=== PATIENT | male | born 1960 | race Caucasian/White ===

== ENCOUNTER → 2017-11-01 08:21 | Outpatient (CLI) | payer OTHER, SELFPAY ==
--- NOTE | 2017-11-01 08:21 | DT_ITS ---
This patient was seen during an EMR downtime October 27, 2017 - November 03, 2017. This patient may have a combination of paper and electronic documentation or all paper documentation. All documentation is viewable within the e-chart portion of [employer] for each patient visit.
--- NOTE | 2017-11-01 09:12 | MRI_ITS ---
STUDY: MRI RIGHT ELBOW REASON FOR EXAM: Male, 56 years old. Fall 2 weeks ago. Pain. TECHNIQUE: Standardized fat and water weighted pulse sequences were obtained in all 3 orthogonal planes. COMPARISON: None. FINDINGS: Normal radio-capitellum articulation. Normal radial collateral ligamentous complex. There is tendinosis with tendon thickening of the common extensor tendon. There are adjacent ossifications in the soft tissues. Normal ulnotrochlear articulation. Normal ulnar collateral ligamentous complex. There is a tendinosis of the common flexor tendon origin with a partial deep surface tear, series 4 images and . There is small joint effusion. The cubital tunnel is normal, with a normal ulnar nerve. Normal biceps tendon and distal insertion. Normal lacertus fibrosis. Normal brachialis musculotendinous insertion. Normal triceps tendon and teno-osseous insertion. Normal olecranon process. The visualized distal humerus, proximal radius, and ulna are normal. The visualized muscles of the distal arm and proximal forearm are normal. The soft tissue structures are unremarkable. MRI/Upper Ext Joint Only(Routine) IMPRESSION: Tendinosis with partial tear of the common flexor tendon. Normal biceps tendon and distal insertion. Electronically Signed: Jonathan Bañuelos MD at 15:20 EDT , Service support ,
== END ==
PROVIDERS: Visit Provider Family Medicine
DX: S46.119A Strain of muscle, fascia and tendon of long head of biceps, unspecified arm, initial encounter (principal)
CPT/HCPCS: 73221

== ENCOUNTER → 2018-09-25 | Outpatient (CLI) | payer BC, SELFPAY ==
--- NOTE | 2018-09-25 09:07 | RAD_ITS ---
STUDY: X-RAY - CERVICAL SPINE REASON FOR EXAM: Male, 57 years old. Lump involving the anterior right side of neck. TECHNIQUE: 5 view(s) of the cervical spine were obtained. COMPARISON: None FINDINGS: There is straightening of the cervical spine. There is mild, grade 1 degenerative listhesis at C3-C4 and C4-C5. Significant spondylosis is identified with bridging and near bridging vertebral body marginal osteophytes. There is moderate to severe C5-C6 and C6-C7 degenerative disc disease. Moderate, multilevel, bilateral uncovertebral joint hypertrophy is seen on the frontal projection. Bilateral soft tissue calcifications are seen in the regions of the bilateral carotid bulbs. No significant osseous foraminal stenosis is seen on bilateral oblique projections. Normal odontoid process. RAD/Cerv Spine 4 or 5 Views IMPRESSION: Probable degenerative straightening of the cervical spine versus straightening secondary to paraspinal muscular spasm or degenerative changes. Multilevel, mild to minimal, grade 1 degenerative listhesis. 2 levels of moderate to severe degenerative disc disease. Multilevel moderate to severe spondylosis with anterior bridging and near bridging vertebral body marginal osteophytes. The retropharyngeal and prevertebral soft tissues appear unremarkable. No significant osseous foraminal stenosis on bilateral oblique projections. No evident acute osseous abnormality. Soft tissue calcifications in the regions of the bilateral carotid bulbs probably representing atherosclerotic peripheral vascular disease. Consider further evaluation with carotid sonography. Electronically Signed: Des Pittman MD at 13:45 EDT , Service support ,
[2018-09-25 09:34] LABS: Bacteria 0 SEEN /hpf (None Seen); Mucous, Urine 0 SEEN /hpf (<or=2+)
[2018-09-25 10:29] LABS: Absolute Lymphocyte Count 1.57 X10^3/ul (0.83-4.51); Absolute Neutrophil Count 2.3 X10^3/uL (2.0-7.7); Basophil# 0.05 X10^3/uL; Eosinophil# 0.32 X10^3/uL; Eosinophils% 6.1 % (0-5); Hematocrit 41.6 % (40-54); Hemoglobin 13.8 g/dl (13.0-16.5); Lymphocyte # 1.57 X10^3/ul (4.0); Mean Corp Hgb Conc 33.2 g/gl (32-36); Mean Corpuscular Hgb 32.1 pg (27.0-32.0); Mean Corpuscular Volume 96.7 fL (80-94); Mean Platelet Vol. 10.1 fl (6.2-12.0); Monocyte# 0.98 X10^3/uL; Monocyte% 18.7 % (0-10); Neutrophil # 2.31 X10^3/uL (2.7-7.7); Platelet Count 165 K/mm3 (150-450); RBC Distribution Width CV 14.1 % (11.6-14.6); White Blood Count 5.2 K/mm3 (4.4-11.0)
[2018-09-25 10:36] LABS: POSITIVE COUNT NO; POSITIVE DIFFERENTIAL NO; POSITIVE MORPHOLOGY NO
[2018-09-25 11:05] LABS: Color, Urine Yellow (Yellow); Glucose, Dipstick Normal (Normal); Ketone-Dipstick Negative (Negative); Leukocyte Esterase-Dipstick Negative /ul (Negative); Nitrite-Dipstick Negative (Negative); Occult Blood-Urine Negative /ul (Negative); Protein-Dipstick Negative (Negative); Urine Bilirubin Dipstick Negative (Negative); Urine Clarity Clear (Clear); Urine Urobilinogen Normal (Normal)
[2018-09-25 11:15] LABS: Vitamin B12 548 pg/mL (211-911)
[2018-09-25 11:16] LABS: ALB/GLOB Ratio 0.7 RATIO (0.9-2.4); AST(SGOT) 68 U/L (15-37); Alanine Aminotransfer ALT/SGPT 69 U/L (16-61); Albumin, Serum 3.6 g/dL (3.2-5.0); Alkaline Phosphatase 133 U/L (45-117); Anion Gap 7 (5-15); BUN 13 mg/dL (7-18); BUN/Creat Ratio 16.1 RATIO (10-20); Calcium,Total 8.6 mg/dL (8.5-10.1); Chloride 107 mmol/L (98-107); Cholesterol 138 mg/dL (200); EST Glomerular Filtration Rate 104 mL/min (>60); Est Glom Filt Rate - Afr Amer 126 mL/min (>60); Globulin 5.1 g/dL (2.2-4.2); Glucose 108 mg/dL (74-106); High Density Lipoprotein 47 mg/dL; Potassium 3.8 mmol/L (3.5-5.1); Protein, Total 8.7 g/dL (6.4-8.2); Sodium Level 137 mmol/L (136-145); Triglycerides 73 mg/dL; Very Low Density Lipoprotein 15 mg/dL (5-40)
[2018-09-25 11:29] LABS: Red Blood Cells-Urine 0-5 SEEN /hpf (0-5); Squamous Epithelial Cells - UA 0-5 SEEN /hpf (0-5); White Blood Cells 0-5 SEEN /hpf (0-5)
[2018-09-25 14:37] LABS: Hemoglobin A1c 5.4 % (4.2-6.3)
[2018-09-30 11:04] LABS: HEPATITIS B SURFACE AG Negative (Negative); Hep B Surface Antibodies Non Reactive (.); Vitamin B1, Thiamine 141.9 nmol/L (66.5-200.0)
[2018-09-30 11:06] LABS: Hep C Antibodies >11.0 s/co ratio (0.0-0.9)
== END | disposition home or self-care (01) ==
LOC: MTLAB 09:05
PROVIDERS: Family Provider Family Medicine; PCP Family Medicine; Referring Provider Family Medicine; Visit Provider Family Medicine
DX: M54.2 Cervicalgia (principal); R03.0 Elevated blood-pressure reading, without diagnosis of hypertension; F10.20 Alcohol dependence, uncomplicated; Z13.220 Encounter for screening for lipoid disorders; R73.9 Hyperglycemia, unspecified; R94.5 Abnormal results of liver function studies
CPT/HCPCS: 36415; 72050; 80053; 80061; 81001; 82607; 83036; 84425; 84443; 85025; 86706; 86803; 87340

== ENCOUNTER → 2018-09-30 | Outpatient (CLI) | payer BC, SELFPAY ==
--- NOTE | 2018-09-30 09:29 | US_ITS ---
STUDY: THYROID ULTRASOUND REASON FOR EXAM: Male, 57 years old. Right neck mass. TECHNIQUE: Ultrasound evaluation of the thyroid was performed with real-time and static higgins-scale imaging. COMPARISON: None. FINDINGS: RIGHT LOBE: The right lobe of the thyroid gland measures 6.7 x 4.7 x 3.5 cm. There is a heterogeneous echotexture. Well-circumscribed complex solid mass measuring 6.6 x 4.5 x 3.5 cm. LEFT LOBE: The left lobe of the thyroid gland measures 4.8 x 1.7 x 1.7 cm. There is a homogeneous echotexture. There are no demonstrated solid, cystic or complex lesions. ISTHMUS: The isthmus measures 4 mm . The regional lymph nodes are normal. US/Thyroid IMPRESSION: Thyromegaly right lobe larger than the left. Large solid mass right lobe of the thyroid gland. Electronically Signed: Thuan Rice MD at 2:43 EDT , Service support ,
== END | disposition home or self-care (01) ==
LOC: US 09:28
PROVIDERS: Family Provider Family Medicine; PCP Family Medicine; Referring Provider Family Medicine; Visit Provider Family Medicine
DX: R22.1 Localized swelling, mass and lump, neck (principal)
CPT/HCPCS: 76536

== ENCOUNTER → 2018-10-01 | Outpatient (CLI) | payer BC, SELFPAY ==
[2018-10-05 14:06] LABS: Comment 1a (.); HCV Quant. RNA PCR 2060000 IU/mL (.)
[2018-10-06 10:46] LABS: HCV log 10 6.314 (.)
[2018-11-02 12:09] LABS: Hepatitis C Genotype 1a
== END | disposition home or self-care (01) ==
PROVIDERS: Family Provider Family Medicine; PCP Family Medicine; Referring Provider Family Medicine; Visit Provider Family Medicine
DX: B19.20 Unspecified viral hepatitis C without hepatic coma (principal)
CPT/HCPCS: 36415; 87522; 87902

== ENCOUNTER → 2018-10-10 | Outpatient (CLI) | payer BC, SELFPAY ==
[2018-10-10 08:58] VITALS: BMI 29.1
--- NOTE | 2018-10-10 09:00 | ASPSI_PTH ---
PATIENT: MATTHEW ZEPEDA LOC: [facility] U#:[id number] AGE/SX: 57/M ROOM: RE10/10/[address]: Dr. Ruben Morrison MD : 1960 BED: DIS: 10/10/2018 SPEC #: [id number] RECD: 10/10/18 11:42 STATUS: DONOVAN STEFANO #: [id number] THUY: 10/10/18 09:[address]: Ruben Morrison DEPT: CYTOLOGY RECD BY: Arsalan Hong ENTERED: 10/12/18 10:16 SP TYPE: ASP BRENNA MORLEY DR: Dr. Volodymyr Bustillos MD Tissues: A - Thyroid gland, NOS B - Thyroid gland, NOS Procedures: Surgery Specimen Level IV Cytospin Fluid Cytology Other HEADER OPERATION: Ultrasound guided fine needle aspiration of right thyroid PRE-OP DIAGNOSIS: Uninodular goiter (nontoxic) E.04.1 TISSUE SUBMITTED: A. Right thyroid nodule fluid for cytology, B. Right thyroid nodule slides x12 DIAGNOSIS CYTOLOGY A. Fine needle aspiration, right thyroid nodule (cytospin and cell block): Negative for malignant cells. B. 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 AM:lexii 10/13/18 COMMENT Immediate cytologic evaluation to determine adequacy is not applicable. Case has been reviewed in consultation with Dr. Gutierrez who concurs with the above diagnosis. IDC:CE CYTOLOGY STUDY Slides are reviewed. CYTOLOGY GROSS A. Received is 5 ml of red cloudy fluid labeled with the patient's name and and designated per the requisition as right thyroid. Submitted for cytology preparation including cell block. B. Received are 12 smears labeled with the patient's name and designated per the requisition as right thyroid. Submitted for staining. / CC:cc 10/12/18 TC:5 CPT: 96327, 99357, 73941
== END | disposition home or self-care (01) ==
PROVIDERS: Family Provider Family Medicine; PCP Family Medicine; Visit Provider Surgery
DX: E04.1 Nontoxic single thyroid nodule (principal)
CPT/HCPCS: 88108; 88161; 88305

== ENCOUNTER → 2018-10-15 | Outpatient (CLI) | payer BC, SELFPAY ==
[2018-10-10 08:58] VITALS: BMI 29.1
--- NOTE | 2018-10-15 08:36 | ECHOD_ITS ---
Reason For Study: Murmur Procedure This was a 2D Doppler, Color Flow transthoracic echocardiogram. Exam performed in department. Left Ventricle Normal size and thickness. Left ventricular systolic function is normal. The estimated ejection fraction is 55 %. Normal diastology for age. No regional wall motion abnormalities noted. Right Ventricle Normal right ventricle. Normal systolic function. Atria Normal left atrium. Normal right atrium. No doppler evidence for ASD. Mitral Valve No significant mitral valve stenosis. Trivial mitral valve insufficiency. Tricuspid Valve There is no tricuspid stenosis. Unable to estimate RV systolic pressure due to inadequate jet, pulmonary artery pressure probably normal. Aortic Valve Trisinus/trileaflet aortic valve. There is no aortic stenosis. No aortic valve insufficiency. Pulmonic Valve There is no pulmonic valvular stenosis. No pulmonic valve insufficiency. Great Vessels Normal aortic root. Pericardium/Pleural No pericardial effusion. MMode/2D Measurements & Calculations LVIDd: 5.6 cm IVSd: 1.4 cm Ao root diam: 4.0 cm LVIDs: 3.5 cm LVPWd: 1.4 cm LA dimension: 4.0 cm FS: 38.8 % LAV(MOD-sp4): 61.1 ml LVAd ap4: 38.1 cm2 SV(MOD-sp4): 80.1 ml EDV(MOD-sp4): 128.1 ml EDV(sp4-el): 133.6 ml LVAs ap4: 20.5 cm2 ESV(MOD-sp4): 48.0 ml ESV(sp4-el): 48.2 ml EF(MOD-sp4): 62.5 % EF(sp4-el): 63.9 % SV(sp4-el): 85.4 ml LA A4 area: 20.2 cm2 RA A4 area: 17.0 cm2 Time Measurements MV dec time: 0.30 sec Doppler Measurements & Calculations MV E max juvenal: 77.1 cm/sec Lat Peak E' Juvenal: 10.3 cm/sec Med Peak E' Juvenal: 7.5 cm/sec MV A max juvenal: 94.7 cm/sec E/E' lat: 7.5 E/E' med: 10.3 MV E/A: 0.81 MV V2 max: 102.1 cm/sec MV P1/2t max juvenal: 82.8 cm/sec Ao V2 max: 141.2 cm/sec MV max P.2 mmHg MV P1/2t: 118.0 msec Ao max P.0 mmHg MV V2 mean: 59.8 cm/sec Ao V2 mean: 85.3 cm/sec MV mean P.6 mmHg MV dec slope: 205.6 cm/sec2 Ao mean P.6 mmHg MV V2 VTI: 32.0 cm MVA(P1/2t): 1.9 cm2 Ao V2 VTI: 29.0 cm LV V1 max: 115.4 cm/sec PA V2 max: 120.4 cm/sec TR max juvenal: 211.4 cm/sec LV V1 max P.3 mmHg TR max P.9 mmHg LV V1 mean P.3 mmHg LV V1 mean: 69.5 cm/sec LV V1 VTI: 23.9 cm Interpretation Summary Left ventricular systolic function is normal. The estimated ejection fraction is 55 %. Normal diastology for age. Ordering Physician: Volodymyr Bustillos Referring Physician: Volodymyr Bustillos Performed By: Mickey Nicholas RCS
== END | disposition home or self-care (01) ==
PROVIDERS: Family Provider Family Medicine; PCP Family Medicine; Referring Provider Family Medicine; Visit Provider Family Medicine
DX: R01.1 Cardiac murmur, unspecified (principal)
CPT/HCPCS: 93306

== ENCOUNTER 2018-10-26 15:50 | Observation (INO) | payer BC, SELFPAY ==
[2018-10-16 09:50] VITALS: BMI 29.1
--- NOTE | 2018-10-21 10:20 | HP_ITS ---
Intake Vital Signs 10/06/18 Height 5 ft 9.5 in 10/06/18 Weight: 200 lb 10/06/18 Body Mass Index (BMI) 29.1 10/06/18 Blood Pressure 167/94 H 10/06/18 Blood Pressure Location Lt brachial 10/06/18 Blood Pressure Position Sitting 10/06/18 Respiratory Rate 18 Intake Visit Reasons: Thyroid Nodules [facility] US 09/30 School Fundraising Director Required: No Is patient in pain?: No Allergies No Known Allergies Allergy (Unverified 10/16/18 09:47) Medications amlodipine 10 mg tablet 10 mg PO DAILY 10/16/18 [History Confirmed 10/16/18] hydrochlorothiazide 25 mg tablet 25 mg PO DAILY 10/16/18 [History Confirmed 10/16/18] lisinopril 5 mg tablet 5 mg PO DAILY 10/16/18 [History Confirmed 10/16/18] [facility] Medical History HTN (hypertension) (Chronic) Surgical History S/P fine needle aspiration (Acute) Status post pneumothorax (Acute) Family History Brother Cancer lymph nodes Social History Smoking Status: Former smoker second hand exposure: No alcohol intake: current alcohol intake frequency: 3 or more drinks per day Alcohol type: beer substance use type: does not use caffeine: No what type of physical activity do you participate in: none frequency: does not exercise HPI HPI HPI: MATTHEW ZEPEDA, is a 57 M who presents to the office today for HPI HPI Surgical H&P: Yes HPI: MATTHEW ZEPEDA is a 57 M who presents to the office today for evaluation of an abnormal ultrasound to his thyroid gland. Patient had a thyroid ultrasound completed at [facility] on 09/30/2018. This showed a 6.6 x 4.5 x 3.5 well-circumscribed solid mass within his right thyroid lobe. There were no nodules in his left thyroid lobe. Patient states that he has had a right sided anterior growth on his neck for approximately 1-1/2 to 2 years. He denies any pain to the area he has had no difficulty swallowing. Over the last month he has had some slight discomfort with movement and has been seen by chiropractor with little effect in relieving the pain. ROS General General: No weight change, appetite, fatigue, colon cancer, breast cancer or weakness HEENT HEENT: Yes swollen glands; no difficulty swallowing, eye injury, eye surgery or hoarseness Endo Endocrine: No thyroid disease, diabetes mellitus, thyroid cancer, Hair loss, heat intolerance or cold intolerance Skin Skin: No rash or changing moles Breast Breast: No left breast lump, right breast lump, nipple discharge, breast pain, abnormal mammogram, abnormal US or breast enlargement Musc Musculoskeletal: No back problems, arthritis, rheumatoid arthritis, gout or joint pain Cardio Cardiovascular: Yes murmur and high blood pressure; no pacemaker, heart disease, atrial fibrillation, heart attack, heart stent, palpitations, shortness of breat with exertion or chest pain Psych Psychiatric: No depression, anxiety or hearing voices Resp Respiratory: No shortness of breath, No sleep apnea, No cough, No COPD, No asthma, No emphysema, No wheezing Gastro Gastrointestinal: No abdominal pain, No nausea or vomiting, No diarrhea, No constipation, No blood in stool, No acid reflux, No hemorrhoids, No ulcers, No gallbladder problem, No black,tarry stools Margarito Hematologic: No blood thinners, No blood disorders, No bleeding, No anemia, No blood clots Neuro Neurologic: No system reviewed and no additional complaints, except as docu, No as per HPI, No abnormal walking, No abnormal hearing, No abnormal movements, No abnormal speech, No behavioral changes, No burning sensations, No confusion, No seizure-like activity, No unsteadiness, No dizziness, No localized weakness, No frequent falls, No headache(s), No lack of coordination, No loss of vision, No memory loss, No numbness, No other visual disturbances, No radiating pain, No restless legs, No sensory deficit, No fainting, No tingling, No tremor(s), No weakness, No other Exam Const General: no acute distress, well developed, well hydrated Orientation: oriented to person, oriented to place, oriented to time [facility] Head: normocephalic, atraumatic Ears: external ears normal Mouth: moist mucous membranes Other: Thyroid Exam: Enlargement of the right thyroid is identified. There are no hard palpable nodules identified. There is no lymphadenopathy identified Eyes Sclera: sclerae normal Pupils: normal by confrontation Neck Neck: no lymphadenopathy noted Neck mass: No Thyroid: thyroid normal, symmetrical Chest Chest palpation & inspection: normal inspection of the chest Breast Palpation: No nipple discharge Resp Effort & Inspection: normal respiratory effort Auscultation: clear to auscultation bilaterally Percussion: percussion normal Cardio Rate: regular rate Rhythm: regular rhythm Heart Sounds: murmur GI Palpation: soft, no hepatosplenomegaly, no masses, nontender Rectal Exam: other Other: Rectal exam deferred. Extrem General: normal to inspection, no clubbing, cyanosis or edema Assessment & Plan Problems 1. Uninodular goiter E04.1 Plan Plan is to perform a right-sided fine-needle aspiration of his thyroid gland. Once is completed he will need under a right-sided thyroid lobectomy with frozen section and possible total thyroidectomy depending on what the frozen section came back as. Risk benefits to include injury to the parathyroid glands and possible recurrent laryngeal nerves as well as bleeding which could require further surgeries has been discussed in great detail and the patient agrees to proceed. Coding Level of Care Code Off vis,new,level 3 Diagnoses Uninodular goiter E04.1 10/21/18 1021 <Electronically signed by Ruben Morrison MD> Date Ruben Morrison MD I have re-examined the patient. There are no clinical changes since date of exam.
[2018-10-26] VITALS (10 sets, daily range): BP systolic 116–140; BP diastolic 67–95; PULSE 84–98; RESP 16–18; TEMP 36.4–37.2; O2SAT 94–100; BMI 30.2
--- NOTE | 2018-10-26 | THYROID_PTH ---
PATIENT: MATTHEW ZEPEDA LOC: [facility] U#:[id number] AGE/SX: 57/M ROOM: VT318 RE10/26/[address]: Dr. Ruben Morrison MD : 1960 BED: 1 DIS: 10/27/2018 SPEC #: [id number] RECD: 10/26/18 13:40 STATUS: DONOVAN REJer #: [id number] THUY: 10/26/18 00:[address]: Ruben Morrison DEPT: SURGICAL PATHOLOGY RECD BY: Erum Shaffer ENTERED: 10/26/18 14:15 SP TYPE: THYROID OTHR DR: Dr. Volodymyr Bustillos MD Tissues: Thyroid gland, NOS Procedures: Frozen Section (charge) Surgery Specimen Level V HEADER OPERATION: Thyroid lobectomy PRE-OP DIAGNOSIS: Uninodular goiter TISSUE SUBMITTED: Right lobe thyroid FROZEN SECTION DIAGNOSIS Right thyroid lobe, lobectomy: Colloid nodule with degenerative change. AM:lexii 10/26/18 MICROSCOPIC DIAGNOSIS Right lobe of thyroid, lobectomy: Colloid nodule with degenerative, cystic and focal adenomatous change. AM:lexii 10/28/18 COMMENT Immunohistochemistry ([id number]) supports the above diagnosis. MICROSCOPIC DESCRIPTION Slides are reviewed. GROSS DESCRIPTION Received fresh for frozen section consultation labeled with the patient's name is a specimen designated uninodular goiter. The specimen consists of a lobe of thyroid measuring 11.5 x 7 x 4.5 cm and weighing 52.7 gm and containing an ovoid, smooth, glistening nodule measuring 7 x 4.5 x 2.5 cm. The specimen is inked and serially sectioned to reveal gelatinous and cystic contents. A welding equipment sales representative section of the nodule is submitted in one block for frozen section consultation. The remainder of the uninvolved thyroidal tissue is light moreno in color and free of mass lesions. Additional welding equipment sales representative sections are submitted as follows: 2 - isthmus at margin of resection, 3 - uninvolved thyroid tissue, 4-10 - additional sections of nodule. / AM:lexii 10/27/18 TC:1 CPT: 71904, 73602
--- NOTE | 2018-10-26 | IMM_PTH ---
PATIENT: MATTHEW ZEPEDA LOC: [facility] U#:[id number] AGE/SX: 57/M ROOM: AR318 RE10/26/[address]: Dr. Ruben Morrison MD : 1960 BED: 1 DIS: 10/27/2018 SPEC #: [id number] RECD: 10/28/18 14:00 STATUS: DONOVAN REJer #: [id number] THUY: 10/26/18 00:[address]: Ruben Morrison DEPT: IMMUNOHISTOCHEMISTRY RECD BY: Erum Shaffer ENTERED: 10/28/18 14:02 SP TYPE: IMMUNO OTHR DR: Dr. Volodymyr Bustillos MD Tissues: Thyroid gland, NOS Procedures: HBME (initial) CD56 (add) CK19 (add) GAL-3 (add) PHYSICIAN & INSTITUTION [place] [id number] SPECIMEN INFORMATION: Tissue Source: Right thyroid lobe Clinical Info: Uninodular goiter Specimen Number: [id number] #8 CPT code: 99814, 03480 x3 METHODOLOGY: Deparaffinized sections of prefer/formalin-fixed tissue or PAP/DQ stained slides are incubated with monoclonal/polyclonal antibodies/oligonucleotide probes. Localization is made via biotin free immunoperoxidase method. Appropriate controls are performed and reacted as expected. Results on target cell population are indicated in the following table: RESULTS: ANTIBODY / CLONE RESULT Block 8 HBME1 (HBME-1) negative CK19 (A53-B/A2.26) positive GAL3 (9C4) negative CD56 (123C3.D5) positive These tests were developed and their performance characteristics determined by [facility]. They may not have been cleared or approved by the U.S. Food and Drug Administration. The FDA has determined that such clearance or approval is not necessary. INTERPRETATION: Right thyroid lobe, lobectomy: Colloid nodule with focal adenomatous change. AM:lexii 10/29/18
--- NOTE | 2018-10-26 11:18 | EKG12_ITS ---
Test Reason : PRE-OP Blood Pressure : / mmHG Vent. Rate : 092 BPM Atrial Rate : 092 BPM P-R Int : 176 ms QRS Dur : 110 ms QT Int : 382 ms P-R-T Axes : 043 -28 014 degrees QTc Int : 472 ms Normal sinus rhythm Leftward axis Incomplete left bundle branch block Confirmed by MICHELLE BIRCH, HORTENCIA ([id number]), restaurant expeditor TARI MAYORGA ([id number]) on 10/30/2018 6:59:01 AM Referred By: Ruben Morrison Confirmed By:HORTENCIA MARTINEZ MD
[2018-10-26] MEDS: Cefazolin 2 GM in 0.9% Normal Saline 100 ML IV (12:42)
--- NOTE | 2018-10-26 13:46 | PCM.OPRPT ---
Problem List (1) Uninodular goiter (nontoxic) Status: Acute Report of Operation Date of Procedure: 10/26/18 Pre-Operative Diagnosis: Uninodular goiter Post-Operative Diagnosis: Same Surgery/Procedure Performed:: Right thyroid lobectomy and isthmusectomy Type of Anesthesia:: General Anesthesiologist: Evan Rangel Specimen's removed: Right thyroid and isthmus Drains: None Estimated Blood Loss (mL): < 25 cc Description of Procedure: Patient was brought into the operating room placed in the supine position. Under excellent general endotracheal intubation towel was placed underneath the shoulder blade and neck was extended and properly padded and then sterilely prepped and draped in usual fashion. The neck was marked appropriately prior to the operation local was injected cervical incision was made subplatysmal flaps were created with use of electrocautery. Became very apparent very quickly that this was not going to be amendable to a surgery by just stretching with strap muscles I decided very early on to use a harmonic dissector and took down the strap muscles on the right side. This facilitated identifying the superior pole vessels which I took down with harmonic dissector inferior pole vessels which I took down with harmonic dissector in the middle thyroidal vein which I took down with harmonic dissector I rotated the gland from lateral to medial standpoint exposing varies ligaments very easily I took them down with a harmonic dissector making sure to identify the inferior parathyroid gland I did not see the superior parathyroid glands rotated the gland to the left side of the isthmus and transected it here. I inspected it I saw nothing that look like parathyroid tissue and I sent it to pathology for frozen section. I had a few small vessels in the superior pole which I needed to use medium clips to get good hemostasis once this was achieved and I had good hemostasis I irrigated I placed a small piece of fluffy Surgicel into the wound I then brought the strap muscles back together with 2 layers of 0 Vicryl. Midline strap muscles were then brought together with a 2-0 Vicryl. Exparel was then injected subplatysmal flaps were brought back together with 2-0 Vicryl deep dermal stitches with 3-0 Vicryl in a running 4-0 Monocryl. Frozen section came back as colloid nodule. - Admit VTE Documentation VTE Present on Admission: No VTE Mechan Device Prophylaxis: SCD's VTE Pharm Prophylaxis ordered?: No Reason prophylaxis not ordered:: Treatment Not Indicated
[2018-10-26] MEDS: BUPIVACAINE LIPOSOME/PF 20 ML VIAL OPERA.SITE (13:48)
[2018-10-26] MEDS: Lactated Ringers 1,000 ML 75 ML IV (16:13)
[2018-10-26] MEDS: oxyCODONE 5 MG Tablet PO ×2 (18:04→22:10)
[2018-10-27 02:00] VITALS: BP 127/69; PULSE 84; RESP 16; TEMP 36.6; O2SAT 94
[2018-10-27] MEDS: oxyCODONE 5 MG Tablet PO (02:13)
--- NOTE | 2018-10-27 02:35 | NURSING ---
Pt. wishes to refused SCD's at this time. This nurse educated pt. on the importance of wearing the SCD's after surgery to prevent blood clots. Even after education pt. still would like to refuse SCD's at this time.
--- NOTE | 2018-10-27 08:08 | PCM.PN.SRG ---
Patient Problems: Active and Suspected Problems (Last Reviewed 10/21/18 @ 10:19 by Ruben Morrison MD) Uninodular goiter (nontoxic) (Acute) Subjective: Patient evaluated resting comfortably in bed. He notes minimal amount of incisional discomfort. He notes minimal amount of sore throat. - Physical Exam General: Alert, Oriented x3, Cooperative Neck: - - Anterior neck- incision c/d/i. No erythema or infection noted. Minimal amount of ecchymosis and swelling. Vital Signs Temp Pulse Resp BP Pulse Ox 97.9 F 84 16 127/69 H 94 10/27/18 02:00 10/27/18 02:00 10/27/18 02:00 10/27/18 02:00 10/27/18 02:00 Oxygen Delivery Method Room Air Weight: 204 lb 12.951 oz Body Mass Index (BMI) 30.2 Intake and Output for Last 24 Hours 10/25/18 10/26/18 10/27/18 23:59 23:59 23:59 Intake Total 2460 / 2460 1385 / 1385 Output Total 350 / 350 Balance 2110 / 2110 1385 / 1385 Medical Necessity - Tobacco Use Smoking Status: Former smoker Assessment/Plan All Active Problems (Last Reviewed 10/21/18 @ 10:19 by Ruben Morrison MD) Uninodular goiter (nontoxic) (Acute) S/P fine needle aspiration (Acute) Status post pneumothorax (Acute) I am following this patient with Dr. Morrison S/p right thyroid lobectomy Ready for discharge Code Visit Inpatient E&M: 76966 Subs Hosp L1 - No charge/post-op
--- NOTE | 2018-10-27 08:13 | DCINST_ITS ---
Discharge Diet: Light diet - advance as tolerated Discharge Activity: May Not Drive - No driving for 1 week or while taking narcotic pain meds. May shower in (days): 1 Lifting Restrictions: 10 pounds Call your doctor if your incision/area has: Continuous Slow Oozing, Sudden Increased Bleeding, Increased Pain/ Swelling, Increased Redness, Foul Smelling Discharge, Swelling at the incision site Suture Line Care: Avoid Pulling/Pushing, Avoid Pinching/Bending Cleanse incision/area with: Soap & Water Allergies/Adverse Reactions: Allergies No Known Allergies Allergy (Verified 10/26/18 11:40) Medications to take at Discharge amlodipine 10 mg tablet 10 mg PO DAILY 10/16/18 hydrochlorothiazide 25 mg tablet 25 mg PO DAILY 10/16/18 lisinopril 5 mg tablet 5 mg PO DAILY 10/16/18 Oxycodone [Oxyir] 5 mg PO Q6H PRN PRN 7 Days #30 tablet 10/27/18 The following prescriptions were given: Oxycodone [Oxyir] 5 mg PO Q6H PRN PRN 7 Days #30 tablet PRN Reason: Pain Primary Care Physician: Volodymyr Bustillos MD [Primary Care Provider] - Test Results: Test results from this visit will be discussed in further detail at your follow- up appointment, if applicable. Please Follow Up With: Ruben Morrison MD - [phone] When: 10 days Proposed Discharge Date: 10/27/18
[2018-10-27 08:29] VITALS: BP 141/79; PULSE 87; RESP 18; TEMP 36.9; O2SAT 97
[2018-10-27] MEDS: Lisinopril 5 MG Tablet PO (08:31)
[2018-10-27] MEDS: amLODIPine 10 MG Tablet PO (08:31)
[2018-10-27] MEDS: hydroCHLOROthiazide 25 MG Tablet PO (08:31)
== END 2018-10-27 09:55 | disposition home or self-care (01) ==
LOC: SDC 10-27 08:39
PROVIDERS: Admitting Provider Surgery; Family Provider Family Medicine; PCP Family Medicine; Referring Provider Surgery; Visit Provider Surgery
PROC: (CPT 60225; principal; 2018-10-26 12:20)
DX: E04.1 Nontoxic single thyroid nodule (principal); I10 Essential (primary) hypertension; Z86.19 Personal history of other infectious and parasitic diseases; Z87.891 Personal history of nicotine dependence; Z79.899 Other long term (current) drug therapy
CPT/HCPCS: 60225; 88307; 88331; 88341; 88342; 93005; 99218; J7120; G0378; G0379; J2405

== ENCOUNTER → 2018-11-11 | Outpatient (CLI) | payer BC, SELFPAY ==
[2018-10-27 10:18] VITALS: BMI 30.2
[2018-11-11 13:10] LABS: ALB/GLOB Ratio 0.7 RATIO (0.9-2.4); AST(SGOT) 168 U/L (15-37); Alanine Aminotransfer ALT/SGPT 152 U/L (16-61); Albumin, Serum 3.8 g/dL (3.2-5.0); Alkaline Phosphatase 152 U/L (45-117); Anion Gap 9 (5-15); BUN 11 mg/dL (7-18); BUN/Creat Ratio 13.3 RATIO (10-20); Bilirubin, Direct 0.54 mg/dL (0.00-0.30); Calcium,Total 9.2 mg/dL (8.5-10.1); Chloride 101 mmol/L (98-107); Creatinine, Serum 0.83 mg/dL (0.70-1.30); EST Glomerular Filtration Rate 101 mL/min (>60); Est Glom Filt Rate - Afr Amer 122 mL/min (>60); Globulin 5.1 g/dL (2.2-4.2); Glucose 128 mg/dL (74-106); Potassium 3.4 mmol/L (3.5-5.1); Protein, Total 8.9 g/dL (6.4-8.2); Sodium Level 136 mmol/L (136-145)
[2018-11-11 13:40] LABS: International Normalized Ratio 1.2; Partial Thromboplast Time 33.2 Seconds (24.1-36.2); Prothrombin Time (Protime)PT. 15.4 SECONDS (11.7-14.9)
[2018-11-12 10:25] LABS: AFP, Tumor Marker 6.3 ng/mL (0.0-8.3)
== END | disposition home or self-care (01) ==
LOC: MTLAB 10:16
PROVIDERS: Family Provider Family Medicine; PCP Family Medicine; Referring Provider Internal Medicine Gastroenterology; Visit Provider Internal Medicine Gastroenterology
DX: B19.20 Unspecified viral hepatitis C without hepatic coma (principal)
CPT/HCPCS: 36415; 80053; 82105; 82248; 85610; 85730

== ENCOUNTER → 2018-11-16 | Outpatient (CLI) | payer BC, SELFPAY ==
[2018-10-27 10:18] VITALS: BMI 30.2
--- NOTE | 2018-11-16 08:10 | US_ITS ---
STUDY: ABDOMINAL ULTRASOUND - RIGHT UPPER QUADRANT REASON FOR VISIT: Male, 57 years old. Hepatitis C TECHNIQUE: Ultrasound evaluation of the right upper quadrant was performed with real-time and static higgins-scale imaging. TECHNICAL QUALITY: Adequate. COMPARISON: None. FINDINGS: Liver: The liver measures 17.4 cm. There is increased echogenicity consistent with fatty infiltration. The bile ducts are within normal limits. There is hepatic color flow. The direction of portal flow is hepatopetal. There is no demonstrated mass lesion. Gallbladder: Normal distended gallbladder. The gallbladder wall measures 2.5 mm. There is a negative sonographic Evans's sign. There is no pericholecystic fluid. There are no gallstones. Common Bile Duct (C.B.D.): The common bile duct measures 3. mm. Pancreas: Normal size of the head, body and tail of the pancreas. There is normal echogenicity of the pancreas. There is no demonstrated pancreatic mass or cyst. Right Kidney: Normal size of the right kidney. The right kidney measures 11.1 cm. Normal renal cortex. The right cortex measures 2 cm. There is no demonstrated renal mass or cyst. There is no right hydronephrosis. There is a nonobstructing right renal mid pole stone measuring 4 mm. US/Abdomen Limited IMPRESSION: Fibrofatty infiltration of the liver and mild hepatomegaly. There is no focal hepatic lesion. Nonobstructing right renal midpole stone. No hydronephrosis. Electronically Signed: Manpreet Hernandez, at 16:19 EDT Tel , Service support ,
== END | disposition home or self-care (01) ==
LOC: US 08:09
PROVIDERS: Family Provider Family Medicine; PCP Family Medicine; Referring Provider Internal Medicine Gastroenterology; Visit Provider Internal Medicine Gastroenterology
DX: B19.20 Unspecified viral hepatitis C without hepatic coma (principal)
CPT/HCPCS: 76705